=== PATIENT | female | born 1950 | race African-American/Black ===

== ENCOUNTER 2019-10-22 22:31 | Inpatient (IN) ==
[2019-10-22] MEDS ORDERED: ONDANSETRON 4 MG/2 ML VIAL IV STA (22:53)
[2019-10-22] MEDS ORDERED: NITROGLYCERIN 2% OINT 1 INCH/GM PACK TOP STA (22:53)
[2019-10-22] MEDS ORDERED: MORPHINE 4 MG/1 ML VIAL IV STA (22:53)
[2019-10-22] MEDS ORDERED: ASPIRIN 325 MG TABLET PO STA (22:53)
[2019-10-22 23:16] LABS: Basophils % 0.5 % (0.0-0.8); Eosinophils # 0.3 10*3/uL (0.0-0.87); Hematocrit 39.2 VOL% (35.7-47.0); Hemoglobin 12.6 GM/DL (12.0-16.0); Immature Granulocytes % 0.5 %; Immature Granulocytes Absolute 0.04 #; Lymphocytes # 1.4 10*3/uL (1.4-4.0); Lymphocytes % 18.2 % (21.3-54.2); Mean Corpuscular HGB Conc 32.1 GM/DL (32-36); Mean Platelet Volume 9.6 FL (9.6-12.0); Monocytes % 9.7 % (1.7-12.7); Neutrophils % 67.1 % (38.7-73.9); Platelet Count 231 T/CUMM (130-400); Red Blood Count 4.31 MC/CUMM (3.8-5.5); Red Cell Distribution Width 12.1 % (9.3-17.3); White Blood Count 7.4 T/CUMM (4-12)
[2019-10-22 23:34] LABS: INR 1.1; PT Patient Result 11.3 SECS (9.8-11.9)
[2019-10-22 23:37] LABS: Albumin 3.3 G/DL (3.4-5.0); Bilirubin,Total 0.5 MG/DL (0.2-1.0); Calcium 9.7 MG/DL (8.5-10.1); Osmolality,Calculated 284.3 MOS/KG (273-304); Total Protein 7.5 G/DL (6.4-8.3)
[2019-10-22] MEDS ORDERED: ALUM/MAG/SIMETH/LIDO VISC 1:1 30 ML BOTTLE PO STA (23:46)
[2019-10-23] MEDS ORDERED: ONDANSETRON 4 MG/2 ML VIAL IV PRN (03:20)
[2019-10-23] MEDS: lisinopriL 20 MG TABLET PO SCH (09:13)
[2019-10-23] MEDS: ENOXAPARIN 40 MG/0.4 ML SYRINGE SUBCUT SCH (09:13)
[2019-10-23] MEDS: BISACODYL 5 MG TABLET PO PRN (21:00)
[2019-10-23 21:09] LABS: Apearance,Urine CLEAR (Clear); Bacteria,Urine Occasional /HPF (Few); Bilirubin,Urine Negative (Negative); Blood, Urine Negative (Negative); Glucose,Urine (UA) Negative (Negative); Ketones,Urine Negative (Negative); Mucus,Urine Occasional /LPF (Occasional); Nitrite,Urine Negative (Negative); Protein,Urine Negative; RBC,Urine 2 /HPF (0-4); Squamous Epithelial Cell,Urine Occasional /HPF (0-10); Urine Color Yellow (Yellow); Urine Specific Gravity 1.047 (1.001-1.035); Urine Urobilinogen < 2.0 EU/DL (0.2-1.0); WBC,Urine 24 /HPF (0-6)
[2019-10-24 06:15] LABS: Basophils % 0.3 % (0.0-0.8); Eosinophils # 0.2 10*3/uL (0.0-0.87); Eosinophils % 3.6 % (0.00-10.9); Hematocrit 35.6 VOL% (35.7-47.0); Hemoglobin 11.7 GM/DL (12.0-16.0); Immature Granulocytes % 0.5 %; Immature Granulocytes Absolute 0.03 #; Lymphocytes # 1.2 10*3/uL (1.4-4.0); Lymphocytes % 19.2 % (21.3-54.2); Mean Corpuscular HGB Conc 32.9 GM/DL (32-36); Mean Corpuscular Volume 88.1 FL (87-102); Mean Platelet Volume 10.1 FL (9.6-12.0); Monocytes % 11.3 % (1.7-12.7); Neutrophils % 65.1 % (38.7-73.9); Platelet Count 219 T/CUMM (130-400); Red Blood Count 4.04 MC/CUMM (3.8-5.5); White Blood Count 6.5 T/CUMM (4-12)
[2019-10-24 06:39] LABS: Calcium 10.1 MG/DL (8.5-10.1); Osmolality,Calculated 277.5 MOS/KG (273-304)
[2019-10-24] MEDS: lisinopriL 20 MG TABLET PO SCH (08:35)
[2019-10-24] MEDS: ENOXAPARIN 40 MG/0.4 ML SYRINGE SUBCUT SCH (09:06)
[2019-10-24] MEDS: DEXAMETHASONE 4 MG/1 ML VIAL IV SCH (17:34)
[2019-10-25] MEDS ORDERED: hydrALAZINE 20 MG/1 ML VIAL IV PRN (00:31)
[2019-10-25] MEDS: MORPHINE 4 MG/1 ML VIAL IV PRN ×3 (00:56→20:00)
[2019-10-25] MEDS: DEXAMETHASONE 4 MG/1 ML VIAL IV SCH ×2 (05:13→17:12)
[2019-10-25] MEDS: lisinopriL 20 MG TABLET PO SCH (09:01)
[2019-10-25] MEDS: PIPERACILLIN/TAZOBACTAM 3,375 MG in SODIUM CHLORIDE 0.9% 100 ML IV SCH ×2 (13:48→20:46)
[2019-10-25] MEDS: BISACODYL 5 MG TABLET PO PRN (15:06)
[2019-10-26] MEDS: MORPHINE 4 MG/1 ML VIAL IV PRN ×4 (00:20→17:50)
[2019-10-26] MEDS: PIPERACILLIN/TAZOBACTAM 3,375 MG in SODIUM CHLORIDE 0.9% 100 ML IV SCH ×3 (04:30→21:40)
[2019-10-26] MEDS: DEXAMETHASONE 4 MG/1 ML VIAL IV SCH ×2 (05:04→17:50)
[2019-10-26 06:12] LABS: Cancer Antigen 19-9 16.6 U/ML (0-37); Carcinoembryonic Antigen 0.7 NG/ML (0.0-5.0)
[2019-10-26] MEDS: lisinopriL 20 MG TABLET PO SCH (10:37)
[2019-10-27] MEDS: DEXAMETHASONE 4 MG/1 ML VIAL IV SCH ×2 (05:51→18:31)
[2019-10-27] MEDS: PIPERACILLIN/TAZOBACTAM 3,375 MG in SODIUM CHLORIDE 0.9% 100 ML IV SCH ×3 (05:54→21:29)
[2019-10-27] MEDS: MORPHINE 4 MG/1 ML VIAL IV PRN ×3 (09:11→23:29)
[2019-10-27] MEDS: lisinopriL 20 MG TABLET PO SCH (09:12)
[2019-10-28] MEDS: MORPHINE 4 MG/1 ML VIAL IV PRN ×3 (04:49→16:35)
[2019-10-28] MEDS: PIPERACILLIN/TAZOBACTAM 3,375 MG in SODIUM CHLORIDE 0.9% 100 ML IV SCH (05:51)
[2019-10-28] MEDS: DEXAMETHASONE 4 MG/1 ML VIAL IV SCH ×2 (05:52→18:38)
[2019-10-28] MEDS: lisinopriL 20 MG TABLET PO SCH (09:27)
[2019-10-29 05:02] LABS: Basophils % 0.2 % (0.0-0.8); Hematocrit 38.1 VOL% (35.7-47.0); Hemoglobin 12.5 GM/DL (12.0-16.0); Immature Granulocytes % 0.8 %; Immature Granulocytes Absolute 0.07 #; Lymphocytes % 10.6 % (21.3-54.2); Mean Corpuscular HGB Conc 32.8 GM/DL (32-36); Mean Corpuscular Volume 87.6 FL (87-102); Mean Platelet Volume 10.5 FL (9.6-12.0); Monocytes % 7.7 % (1.7-12.7); Neutrophils % 80.7 % (38.7-73.9); Platelet Count 249 T/CUMM (130-400); Red Blood Count 4.35 MC/CUMM (3.8-5.5); Red Cell Distribution Width 12.5 % (9.3-17.3); White Blood Count 9.1 T/CUMM (4-12)
[2019-10-29] MEDS: DEXAMETHASONE 4 MG/1 ML VIAL IV SCH (05:07)
[2019-10-29 05:27] LABS: Albumin 2.7 G/DL (3.4-5.0); Bilirubin,Total 0.8 MG/DL (0.2-1.0); Calcium 10.2 MG/DL (8.5-10.1); Osmolality,Calculated 285.4 MOS/KG (273-304); Total Protein 6.6 G/DL (6.4-8.3)
[2019-10-29] MEDS ORDERED: FAMOTIDINE 20 MG TABLET PO ONE ×2 (06:00→08:00)
[2019-10-29] MEDS: lisinopriL 20 MG TABLET PO SCH ×2 (07:55→09:38)
[2019-10-29] MEDS ORDERED: LACTATED RINGERS 1,000 ML IV SCH (08:30)
[2019-10-29] MEDS ORDERED: ceFAZolin 1,000 MG VIAL ONE (09:26)
[2019-10-29] MEDS ORDERED: SEVOFLURANE 1 UNIT/15 MINUTE INH ONE (09:49)
[2019-10-29] MEDS ORDERED: LIDOCAINE 2% 5 ML VIAL ONE (09:49)
[2019-10-29] MEDS ORDERED: propofoL 200 MG/20 ML VIAL IV ONE (09:49)
[2019-10-29] MEDS ORDERED: ONDANSETRON 4 MG/2 ML VIAL ONE (09:50)
[2019-10-29] MEDS ORDERED: PHENYLEPHRINE 1 MG/10 ML SYRINGE IV ONE (09:50)
[2019-10-29] MEDS ORDERED: MIDAZOLAM 2 MG/2 ML VIAL ONE (09:50)
[2019-10-29] MEDS ORDERED: fentaNYL 100 MCG/2 ML VIAL ONE (09:50)
[2019-10-29] MEDS ORDERED: ENOXAPARIN 40 MG/0.4 ML SYRINGE SUBCUT SCH (10:30)
[2019-10-29] MEDS: MORPHINE 4 MG/1 ML VIAL IV PRN ×2 (11:14)
[2019-10-29 13:30] VITALS: BP 171/79
== END 2019-10-29 17:54 | disposition home or self-care (01) | DRG 988 ==
LOC: N.EDINP 22:31 → N.ED 22:31 → N.TELEN 10-23 03:21 → N.4E 10-29 09:51
PROVIDERS: ADMIT Hospitalist; ATTEND Hospitalist

== ENCOUNTER 2020-04-09 17:51 | Inpatient (IN) ==
[2020-04-09] MEDS ORDERED: SODIUM CHLORIDE 0.9% 1,000 ML IV STA (18:22)
[2020-04-09 18:31] LABS: Basophils % 0.1 % (0.0-0.8); Hemoglobin 10.1 GM/DL (12.0-16.0); Immature Granulocytes % 0.6 %; Immature Granulocytes Absolute 0.08 #; Lymphocytes # 0.1 10*3/uL (1.4-4.0); Lymphocytes % 0.7 % (21.3-54.2); Mean Corpuscular HGB Conc 31.6 GM/DL (32-36); Mean Platelet Volume 9.7 FL (9.6-12.0); Monocytes % 7.4 % (1.7-12.7); Neutrophils % 91.2 % (38.7-73.9); Platelet Count 155 T/CUMM (130-400); Red Cell Distribution Width 28.4 % (9.3-17.3); White Blood Count 13.9 T/CUMM (4-12)
[2020-04-09 18:44] LABS: Band Neutrophils 2 % (0-10); Lymphocytes 2 % (20-55); Segmented Neutrophils 90 % (50-85); Total Cells Counted 100
[2020-04-09 18:45] LABS: Macrocytosis Slight; Platelet Estimate Adequate
[2020-04-09 18:52] LABS: Albumin 1.6 G/DL (3.4-5.0); Bilirubin,Total 2.2 MG/DL (0.2-1.0); Calcium 7.1 MG/DL (8.5-10.1); Osmolality,Calculated 286.1 MOS/KG (273-304)
[2020-04-09 18:56] LABS: Bacteria,Urine Many /HPF (Few); Bilirubin,Urine Negative (Negative); Blood, Urine Small mg/dL (Negative); Glucose,Urine (UA) Negative (Negative); Hyaline Casts,Urine 216 /LPF (0-3); Ketones,Urine Negative (Negative); Mucus,Urine Few /LPF (Occasional); Nitrite,Urine Negative (Negative); Protein,Urine 30 MG/DL; Squamous Epithelial Cell,Urine Occasional /HPF (0-10); Urine Appearance CLOUDY (Clear); Urine Color Amber (Yellow); Urine Specific Gravity 1.015 (1.001-1.035); WBC,Urine 128 /HPF (0-6)
[2020-04-09] MEDS ORDERED: cefTRIAXone 1,000 MG in SODIUM CHLORIDE 0.9% 100 ML IV STA (19:05)
[2020-04-09] MEDS ORDERED: DEXTROSE 50% 25 GM/50 ML VIAL IV STA ×2 (19:05→19:06)
[2020-04-09] MEDS ORDERED: INSULIN REGULAR 100 UNIT/ML IV STA (19:05)
[2020-04-09] MEDS ORDERED: DEXTROSE 50% 25 GM/50 ML SYRINGE IV ONE ×2 (19:14→19:17)
[2020-04-09] MEDS ORDERED: oxyCODONE/ACETAMINOPHEN 5-325 MG TABLET PO PRN (20:54)
[2020-04-09] MEDS ORDERED: ALBUTEROL/IPRATROPIUM 3 ML NEB RESP TX PRN (21:13)
[2020-04-09] MEDS ORDERED: ONDANSETRON 4 MG/2 ML VIAL IV PRN (21:14)
[2020-04-09] MEDS ORDERED: DOCUSATE SODIUM 100 MG CAPSULE PO PRN (21:14)
[2020-04-09] MEDS ORDERED: ACETAMINOPHEN 325 MG TABLET PO PRN (21:14)
[2020-04-09 21:28] LABS: ABG HCO3 14.3 MMOL/L (20-26); ABG PCO2 26.4 MM HG (35-48); ABG PH 7.352 (7.35-7.45); ABG PO2 185.2 MM HG (80-95); ABG TCO2 15.1 MMOL/L (23-27)
[2020-04-09 22:02] LABS: INR 1.3
[2020-04-09] MEDS: SODIUM BICARB INJ 50 MEQ in DEXTROSE 5% NACL 0.45% 1,000 ML IV SCH (22:20)
[2020-04-09] MEDS: LEVOFLOXACIN INJ 750 MG in PREMIX 1 EACH IV SCH (22:45)
[2020-04-09] MEDS: FAMOTIDINE 20 MG/2 ML VIAL IV SCH (22:45)
[2020-04-09] MEDS: ENOXAPARIN 60 MG/0.6 ML SYRINGE SUBCUT SCH (22:45)
[2020-04-10] MEDS ORDERED: SODIUM BICARB INJ 50 MEQ in SODIUM CHLORIDE 0.9% 1,000 ML IV ONE (00:30)
[2020-04-10] MEDS: PIPERACILLIN/TAZOBACTAM 3,375 MG in SODIUM CHLORIDE 0.9% 100 ML IV SCH ×2 (01:30→14:00)
[2020-04-10 05:19] LABS: Basophils % 0.1 % (0.0-0.8); Eosinophils % 0.1 % (0.00-10.9); Hematocrit 28.8 VOL% (35.7-47.0); Immature Granulocytes Absolute 0.15 #; Lymphocytes # 0.2 10*3/uL (1.4-4.0); Lymphocytes % 1.2 % (21.3-54.2); Mean Corpuscular HGB Conc 31.3 GM/DL (32-36); Mean Corpuscular Volume 97.6 FL (87-102); Mean Platelet Volume 10.1 FL (9.6-12.0); Monocytes % 6.6 % (1.7-12.7); Platelet Count 146 T/CUMM (130-400); Red Blood Count 2.95 MC/CUMM (3.8-5.5); Red Cell Distribution Width 27.8 % (9.3-17.3); White Blood Count 15.2 T/CUMM (4-12)
[2020-04-10 05:34] LABS: Albumin 1.4 G/DL (3.4-5.0); Calcium 6.7 MG/DL (8.5-10.1); Potassium 5.3 MMOL/L (3.5-5.1)
[2020-04-10 07:00] LABS: Lymphocytes 1 % (20-55); Segmented Neutrophils 86 % (50-85); Total Cells Counted 100
[2020-04-10 07:02] LABS: Schistocytes Few
[2020-04-10 07:03] LABS: Tear Drop Cells Slight
[2020-04-10 07:04] LABS: Platelet Estimate Adequate
[2020-04-10] MEDS: SODIUM BICARB INJ 50 MEQ in DEXTROSE 5% NACL 0.45% 1,000 ML IV SCH ×2 (09:50→23:21)
[2020-04-10] MEDS: DEXAMETHASONE 4 MG TABLET PO SCH (09:50)
[2020-04-10] MEDS ORDERED: SODIUM CHLORIDE 0.9% 500 ML IV ONE (16:18)
[2020-04-10] MEDS: ENOXAPARIN 60 MG/0.6 ML SYRINGE SUBCUT SCH (21:31)
[2020-04-10] MEDS: FAMOTIDINE 20 MG/2 ML VIAL IV SCH (21:32)
[2020-04-11] MEDS: PIPERACILLIN/TAZOBACTAM 3,375 MG in SODIUM CHLORIDE 0.9% 100 ML IV SCH ×2 (03:04→12:20)
[2020-04-11] MEDS: SODIUM BICARB INJ 50 MEQ in DEXTROSE 5% NACL 0.45% 1,000 ML IV SCH ×3 (03:33→20:56)
[2020-04-11 06:54] LABS: Albumin 1.3 G/DL (3.4-5.0); Bilirubin,Total 2.1 MG/DL (0.2-1.0); Calcium 6.5 MG/DL (8.5-10.1); Osmolality,Calculated 290.8 MOS/KG (273-304); Potassium 5.1 MMOL/L (3.5-5.1); Total Protein 5.2 G/DL (6.4-8.3)
[2020-04-11 07:08] LABS: Basophils % 0.1 % (0.0-0.8); Hemoglobin 9.5 GM/DL (12.0-16.0); Immature Granulocytes % 1.1 %; Immature Granulocytes Absolute 0.18 #; Lymphocytes # 0.2 10*3/uL (1.4-4.0); Lymphocytes % 1.1 % (21.3-54.2); Mean Corpuscular HGB Conc 29.7 GM/DL (32-36); Mean Corpuscular Volume 104.6 FL (87-102); Mean Platelet Volume 10.4 FL (9.6-12.0); Monocytes % 7.2 % (1.7-12.7); NRBC # 0.02 10*3/uL; Neutrophils % 90.5 % (38.7-73.9); Platelet Count 126 T/CUMM (130-400); Red Blood Count 3.06 MC/CUMM (3.8-5.5); Red Cell Distribution Width 28.2 % (9.3-17.3); White Blood Count 16.7 T/CUMM (4-12)
[2020-04-11 07:29] LABS: Band Neutrophils 1 % (0-10); Hypochromasia 2+; Lymphocytes 1 % (20-55); Nucleated Red Blood Cells 0 (0-5); Segmented Neutrophils 91 % (50-85); Total Cells Counted 100
[2020-04-11 07:30] LABS: Macrocytosis Slight; Platelet Estimate Adequate; Polychromasia Slight
[2020-04-11] MEDS ORDERED: SODIUM CHLORIDE 0.9% 500 ML IV ONE (07:57)
[2020-04-11] MEDS: DEXAMETHASONE 4 MG TABLET PO SCH (08:44)
[2020-04-11] MEDS: ENOXAPARIN 40 MG/0.4 ML SYRINGE SUBCUT SCH (08:44)
[2020-04-11] MEDS: FAMOTIDINE 20 MG/2 ML VIAL IV SCH (20:56)
[2020-04-12] MEDS: LEVOFLOXACIN INJ 750 MG in PREMIX 1 EACH IV SCH (00:28)
[2020-04-12] MEDS: PIPERACILLIN/TAZOBACTAM 3,375 MG in SODIUM CHLORIDE 0.9% 100 ML IV SCH (02:45)
[2020-04-12] MEDS: SODIUM BICARB INJ 50 MEQ in DEXTROSE 5% NACL 0.45% 1,000 ML IV SCH ×2 (03:33→11:46)
[2020-04-12 06:06] LABS: Basophils % 0.1 % (0.0-0.8); Hematocrit 34.2 VOL% (35.7-47.0); Hemoglobin 10.8 GM/DL (12.0-16.0); Immature Granulocytes % 1.3 %; Immature Granulocytes Absolute 0.27 #; Lymphocytes # 0.2 10*3/uL (1.4-4.0); Lymphocytes % 1.1 % (21.3-54.2); Mean Corpuscular HGB Conc 31.6 GM/DL (32-36); Monocytes % 6.5 % (1.7-12.7); Platelet Count 105 T/CUMM (130-400); Red Blood Count 3.49 MC/CUMM (3.8-5.5); Red Cell Distribution Width 28.1 % (9.3-17.3); White Blood Count 20.5 T/CUMM (4-12)
[2020-04-12 06:10] LABS: Alanine Aminotransferase 27 U/L (13-56); Albumin 1.5 G/DL (3.4-5.0); Alkaline Phosphatase 516 U/L (45-117); Aspartate Amino Transferase 96 U/L (0-37); Blood Urea Nitrogen 56 MG/DL (7-18); Calcium 6.7 MG/DL (8.5-10.1); Carbon Dioxide 16 MMOL/L (21-32); Estimated Glom Filtration Rate 27 ML/MIN; Glucose 131 MG/DL (74-106); Osmolality,Calculated 292.7 MOS/KG (273-304); Potassium 5.3 MMOL/L (3.5-5.1); Sodium 138 MMOL/L (136-145); Total Protein 5.8 G/DL (6.4-8.3)
[2020-04-12 06:27] LABS: Band Neutrophils 1 % (0-10); Lymphocytes 1 % (20-55); Platelet Estimate Decreased; Segmented Neutrophils 92 % (50-85); Total Cells Counted 100
[2020-04-12 06:28] LABS: Hypochromasia 1+; Macrocytosis Slight; Polychromasia Slight
[2020-04-12] MEDS ORDERED: SODIUM POLYSTYRENE SULFATE 15 GM/60 ML BOTTLE PO ONE (08:16)
[2020-04-12] MEDS: ENOXAPARIN 40 MG/0.4 ML SYRINGE SUBCUT SCH (08:40)
[2020-04-12] MEDS: DEXAMETHASONE 4 MG TABLET PO SCH (08:40)
[2020-04-12] MEDS ORDERED: SODIUM BICARBONATE 650 MG TABLET PO SCH (09:00)
[2020-04-12] MEDS ORDERED: CEFUROXIME 500 MG TABLET PO SCH (09:00)
[2020-04-12] MEDS ORDERED: MULTIVITAMIN (CENTRUM) TABLET PO SCH (09:00)
[2020-04-12] MEDS ORDERED: HEPARIN LOCK FLUSH 500 UNIT/5 ML SYRINGE IV ONE (11:56)
[2020-04-12 12:34] VITALS: BP 87/63
== END 2020-04-12 14:10 | disposition home health service (06) | DRG 871 ==
LOC: EDUNIT# → EDBD → N.ED 17:51 → N.EDINP 19:22 → N.ICU 21:18 → N.TELES 04-10 20:08
PROVIDERS: ADMIT Internal Medicine; ATTEND Internal Medicine